=== PATIENT | male | born 1960 | race Caucasian/White ===

== ENCOUNTER → 2024-05-27 | Outpatient (CLI) | payer MEDICARE, SELFPAY ==
[2024-05-28 12:08] LABS: PSA, Free % 9.8 % (.)
== END | disposition home or self-care (01) ==
LOC: LAB 10:30
PROVIDERS: PCP Family Medicine; Referring Provider Nurse Practitioner; Visit Provider Nurse Practitioner
DX: R97.20 Elevated prostate specific antigen [PSA] (principal)
CPT/HCPCS: 36415; 84153; 84154

== ENCOUNTER → 2024-06-21 | Outpatient (CLI) | payer MEDICARE, SELFPAY ==
--- NOTE | 2024-06-21 08:07 | MRI_ITS ---
STUDY: MR PROSTATE GLAND/ PELVIS WITH T WITHOUT CONTRAST REASON FOR EXAM: Male, 64 years old. ELEVATED PSA 9.8 TECHNIQUE: Standardized fat and water weighted pulse sequences were obtained in all 3 orthogonal planes, pre-and post contrast administration. IV 15cc clariscan was administered for the contrast portion of the examination. COMPARISON: None. FINDINGS: Prostate gland volume/size: 6.05 x 5.86 x 5.30 cm. Which is mildly to moderately enlarged. Anterior fibromuscular stroma: Normal. Peripheral zone: Scattered low to intermediate signal linear fibrotic strands bilaterally but no focal mass or enhancing lesion in either the right or left peripheral zone. Bright signal is otherwise preserved in the remaining peripheral zone parenchyma. Central zone: Diffusely heterogeneous with nodules and cysts and hyperplastic fibrotic strands scattered throughout both lobes and with diffuse fairly symmetric enhancement. No visualized focal malignant mass/neoplasm seen on the current study. Findings are most consistent with BPH Transitional zone: Diffusely heterogeneous with nodules and cysts and hyperplastic fibrotic strands scattered throughout both lobes and with diffuse fairly symmetric enhancement. No visualized focal malignant mass/neoplasm seen on the current study. Findings are most consistent with BPH. Normal fluid distention of the bladder. Slight herniation of the apex of the prostate gland into the trigone of the bladder. Mild bladder wall thickening and circumferential trabeculation. No bladder wall masses or intraluminal masses or stones are seen. Prostate capsule: Intact: Seminal vesicles: Normal fluid signal bilaterally. Pelvic sidewall lymphadenopathy: None demonstrated. Bony structures: No lytic or blastic or aggressive process. No demonstrated enhancing lesions. No bone marrow edema or infiltrative marrow replacement process is seen. No visualized pathologic fractures. Normal visualized small intestine. Normal visualized colon. Vessels: No significant or large aneurysm is demonstrated. Normal abdominal wall. MRI/Pelvis W/WO Contrast IMPRESSION: 1. Diffusely heterogeneous with nodules and cysts and hyperplastic fibrotic strands scattered throughout both lobes and with diffuse fairly symmetric enhancement. No visualized focal malignant mass/neoplasm seen on the current study. Findings are most consistent with BPH. 2. PI-RADS 3: intermediate (the presence of clinically significant cancer is equivocal) 3. Targeted image guided biopsy of nodules or area of interest can be performed for definitive pathologic assessment of the tissue and diagnosis 4. Prostate PET/CT exam can also be performed to determine if there is viable malignant neoplasm in the prostate gland. Prostate MRI reference: 15-30% of prostate cancers can go undetected on Prostate MRI. Monitoring and assessment by Primary physician, Urology, and oncology service recommended and treated clnically. (Cancers ([place]). 2022May 07;15(28):4633. doi: [id number] Prostate Cancers Invisible on Multiparametric MRI: Pathologic Features in Correlation with Whole-Mount Prostatectomy Elida Wilkins 1,2,*, Ernst Liao 3, Altagracia Otto 1,2, Lida Mirza 1,2, Serenity Banda 4, Meño Holley 5, Israel Byers 6, Mark Estrada 1,2, Pedro Lopez 1,2) Reference information: Normal prostate tissue Benign prostatic hypertrophy cancer/tumor - low signal peripheral , transitional, and central zones malignancy appears as bright on DWI and low signal on ADC map Prostate imaging-reporting and data system (PI-RADS) PI-RADS 1: very low (clinically significant cancer is highly unlikely to be present) PI-RADS 2: low (clinically significant cancer is unlikely to be present) PI-RADS 3: intermediate (the presence of clinically significant cancer is equivocal) PI-RADS 4: high (clinically significant cancer is likely to be present) PI-RADS 5: very high (clinically significant cancer is highly likely to be present) PI-RADS X: component of exam technically inadequate or not performed Prostate malignancy distribution: Peripheral zone: 70-80% Transitional zone: 10-20% Central zone: 5% or less Electronically Signed: Remington Dukes MD at 9:19 EST Reading Location ID and State: [facility] / [place] , Service support ,
== END | disposition home or self-care (01) ==
PROVIDERS: PCP Family Medicine; Referring Provider Urology; Visit Provider Urology
DX: R97.20 Elevated prostate specific antigen [PSA] (principal)
CPT/HCPCS: 72197; A9575